=== PATIENT | male | born 1940 | race Caucasian/White ===

== ENCOUNTER 2019-11-10 00:39 | Day surgery (SDC) | payer OTHER, SELFPAY ==
[2019-11-05 13:44] VITALS: BMI 28.8
[2019-11-10] MEDS: LACTATED RINGERS 1,000 ML 150 ML IV CONT (08:50)
[2019-11-10 08:59] VITALS: BP 145/72; PULSE 94; RESP 16; TEMP 36.7; O2SAT 93; BMI 28.4
--- NOTE | 2019-11-10 09:30 | WPDGICN ---
Assessment and Plan Additional Plan This is a 79-year-old white male patient seen in evaluation at the request Dr. Winter. Patient was found to have stool Hemoccult FIT test. Patient denies any obvious blood in his stools. He denies abdominal pain he states his weight appetite bowel movements are normal. He has never previously had a colonoscopy. Family history is noncontributory. Mother had pancreatic cancer at an advanced age. Past medical history is significant for COPD, hypertension, elevated cholesterol. Current medications include lisinopril, simvastatin, vitamins. Physical exam reveals patient be alert. Vital signs stable. HEENT exam unremarkable. He is anicteric. Lungs are clear to auscultation and percussion. Heart is without murmur or extra sounds. Abdominal exam bowel sounds are present soft nontender with no organomegaly. Digital external rectal exam is normal. Impression 1. Neoplasia screening. 2. Positive FIT test. Occult blood in stool. Plan is to evaluate more thoroughly with colonoscopy. High-fiber diet is advised. GI Consult Note Consult date/time: 11/10/19 09:30 HPI: Afshin Cloud is a 79 year old male Meds Home Medications and Allergies Home Medications Medication Instructions Recorded Confirmed Type aspirin [Aspir-81] 81 mg PO DAILY 11/05/19 11/05/19 History lisinopril 20 mg PO QAM 11/05/19 11/10/19 History simvastatin 20 mg PO QAM 11/05/19 11/05/19 History umeclidinium-vilanterol [Anoro 1 inh INHALATION QAM 11/05/19 11/05/19 History Ellipta] biotin 5,000 mcg PO DAILY 11/10/19 11/10/19 History omega 7-gpf-toh-fish oil [Fish Oil] 1,000 cap PO DAILY 11/10/19 11/10/19 History sildenafil 20 mg PO PRN PRN 11/10/19 11/10/19 History Allergies Allergy/AdvReac Type Severity Reaction Status Date / Time No Known Allergies Allergy Verified 11/10/19 08:53 Vital Signs Vital Signs - 24 hr 11/10/19 08:59 Temperature 36.7 C Pulse Rate 94 Respiratory Rate 16 Blood Pressure 145/72 H Pulse Oximetry 93
--- NOTE | 2019-11-10 09:31 | WPDANESEPPF ---
Anes - Initial Pre Proc Eval Procedure: Operation Date: 11/10/19 09:30 Proposed Procedures p Colonoscopy - Maco Doherty MD Date/Time: 11/10/19 09:31 Surgeon: Maco Doherty MD Pre Op Diagnosis: abnormal stool Patient Data Age: 79 Gender: M Height: 5 ft 10 in Weight: 89.9 kg Last Vital Signs Temp 98.1 F 11/10/19 08:59 Pulse 94 11/10/19 08:59 Resp 16 11/10/19 08:59 BP 145/72 H 11/10/19 08:59 Pulse Ox 93 11/10/19 08:59 Allergies Allergy/AdvReac Type Severity Reaction Status Date / Time No Known Allergies Allergy Verified 11/10/19 08:53 Home Medications Medication Instructions Recorded Confirmed Type aspirin [Aspir-81] 81 mg PO DAILY 11/05/19 11/05/19 History lisinopril 20 mg PO QAM 11/05/19 11/10/19 History simvastatin 20 mg PO QAM 11/05/19 11/05/19 History umeclidinium-vilanterol [Anoro 1 inh INHALATION QAM 11/05/19 11/05/19 History Ellipta] biotin 5,000 mcg PO DAILY 11/10/19 11/10/19 History omega 6-mbd-ipv-fish oil [Fish Oil] 1,000 cap PO DAILY 11/10/19 11/10/19 History sildenafil 20 mg PO PRN PRN 11/10/19 11/10/19 History Patient hx anesthesia problems: none Family hx anesthesia problems: none [facility] Past Medical History Medical History (Updated 11/10/19 @ 09:32 by Gonzalo Curran MD) COPD (chronic obstructive pulmonary disease) Hyperlipidemia Hypertension Social History Social History (Updated 11/10/19 @ 09:33 by Gonzalo Curran MD) Smoking status: Former smoker Anes - Eval Final PreProcedure Day of Procedure 11/10/19 09:31 Patient weight: obese Heart: regular rate and rhythm Lungs: clear to auscultation Airway: Mallampati scale class III Neurological: alert and oriented Last oral intake: >/= 8 hours ASA classification: III Emergent: no Anesthetic plan: proceed Anesthesia type and monitoring: general GIVS and standard monitoring Informed Consent: The patient's anesthetic plan and its attendant risks and benefits were discussed with the patient/family/POA. Questions were solicited and answers provided to the satisfaction of the patient/family/POA.
[2019-11-10 10:06] VITALS: BP 134/81; PULSE 90; RESP 20; O2SAT 91
[2019-11-10 10:16] VITALS: BP 112/73; PULSE 76; RESP 20; O2SAT 93
[2019-11-10 10:26] VITALS: BP 124/74; PULSE 78; RESP 20; O2SAT 93
== END 2019-11-10 10:53 | disposition home or self-care (01) ==
PROVIDERS: PCP Family Medicine Adolescent Medicine; Visit Provider Internal Medicine Gastroenterology
PROC: 0DJD8ZZ Inspection of Lower Intestinal Tract, Via Natural or Artificial Opening Endoscopic (ICD-10-PCS; CPT 45378; principal; 2019-11-10 09:30)
DX: Z12.11 Encounter for screening for malignant neoplasm of colon (principal); R19.5 Other fecal abnormalities; K64.8 Other hemorrhoids; I10 Essential (primary) hypertension; J44.9 Chronic obstructive pulmonary disease, unspecified; E78.00 Pure hypercholesterolemia, unspecified; Z79.82 Long term (current) use of aspirin
CPT/HCPCS: G0121; J2704; J7120